=== PATIENT | female | born 1965 | race Caucasian/White ===

== ENCOUNTER 2024-12-19 09:22 | Emergency (ER) | payer SELFPAY ==
[2024-12-19 09:27] VITALS: BP 140/88
[2024-12-19 10:05] VITALS: BP 127/63; BMI 25.8
--- NOTE | 2024-12-19 10:05 | ED.GENMED ---
History of Present Illness
General
Chief Complaint: Blood Sugar Problem
Source: patient
Exam Limitations: none
Time Seen by Provider: 12/19/24 09:55
Nursing documentation reviewed up to this point in time: agreed with
History of Present Illness
History of Present Illness:
59-year-old female with history diabetes who presents to the emergency department for evaluation of elevated blood sugar. Patient states that she checked her blood sugar this morning and it was reading in the 300s. She states she did have some mild
blurry vision at home which is somewhat improved by arrival to emergency department. Otherwise she is asymptomatic.
She specifically denies any headache, double vision, abdominal pain, nausea or vomiting. She is urinating without difficulty without any dysuria. She denies any chest pain or shortness of breath.
Patient states she has known type 2 diabetes, although has been unmedicated for a few years. She in the past was on both metformin and Ozempic. She has not checked her blood sugar in a few years and has not had any primary care follow up due to loss
of insurance.
Past History
Past History
ED Past Medical History: Other (bladder ca)
ED Past Surgical History: Cholecystectomy and Other (splenectomy)
Social History
Tobacco: Smoker
Alcohol: None
Drug: None
Personal:
Living: with family
Review of Systems
Review of Systems
Allergies reviewed?: Yes
All Other Systems: ROS reviewed and negative except as documented in HPI and ROS
Phy Exam
Physical Exam
Physical Exam:
Vitals: Mildly tachycardic on arrival, otherwise vitals stable.
General: Patient resting comfortably in no distress.
Skin: Warm and dry, no rashes or lesions
Head: Normocephalic, atraumatic
Eyes: Sclera nonicteric. EOMs intact. Visual hilliard intact. Pupils equal round and reactive to light bilaterally. No nystagmus.
Throat: Protecting airway
Neck: Normal ROM, no cervical spine tenderness, no meningismus
Cardiac: Regular rate and rhythm, no murmurs.
Pulm: Normal respiratory effort. Lungs clear
Abdomen: Abdomen soft and nontender.
Extremities: No evidence of cyanosis or edema. 2+ palpable DP pulses bilaterally.
Neuro: AAOx3. Strength 5/5 in bilateral upper and lower extremities. Sensation intact. No focal deficits
Psychiatric: Normal affect.
Course
Orders/Labs/Results
Orders:
Orders
12/19/24 10:02
0.9% Sodium Chloride 1000 ml [Nss] 1,000 ml IV BOLUS
12/19/24 10:08
Complete Blood Count/With Diff Urgent
Comprehensive Metabolic Panel Urgent
Glycohemoglobin (HgbA1c) Urgent
12/19/24 11:38
Bedside Glucose- Treatment ONCE
12/19/24 12:38
Add On- LAB Urgent
Tests Added?: hgb A1C
12/19/24 12:50
Metformin Extended Release [Glucophage Xr Extended Release] 500 mg PO NOW STA
Abnormal Lab Results
12/19/24 12/19/24
10:08 12:32
WBC 13.0 H 10^3/uL
(4.8-10.8)
RBC 5.70 H 10^6/uL
(4.20-5.40)
Hgb 16.8 H g/dL
(12.0-16.0)
Hct 48.0 H %
(37.0-47.0)
MPV 10.6 H fL
(7.4-10.4)
Absolute Neuts (auto) 7.1 H 10^3/uL
(1.4-6.5)
Absolute Lymphs (auto) 4.9 H 10^3/uL
(1.2-3.4)
Absolute Monos (auto) 0.7 H 10^3/uL
(0.1-0.6)
Creatinine 0.4 L mg/dL
(0.6-1.0)
Glucose 313 H mg/dl
(70-99)
Hemoglobin A1c 14.6 H %
(4.0-5.6)
Calcium 10.4 H mg/dl
(8.4-10.2)
Alkaline Phosphatase 134 H U/L
(38-126)
POC Glucose 227 H mg/dl
(70-99)
12/19/24 10:08
12/19/24 10:08
Vital Signs
Initial and Last Documented VS:
Initial Vital Signs
Temp Pulse Resp BP Pulse Ox
98.9 F 108 16 140/88 98
12/19/24 09:27 12/19/24 09:27 12/19/24 09:27 12/19/24 09:27 12/19/24 09:27
Last Documented Vital Signs
Temp Pulse Resp BP Pulse Ox
98.9 F 89 14 127/63 97
12/19/24 09:27 12/19/24 10:15 12/19/24 10:15 12/19/24 10:05 12/19/24 10:15
MDM/Problems Addressed
Differential Diagnosis Includes:
Not limited to: hyperglycemia, DKA, HHS, acute dehydration, medication noncompliance, etc
MDM/Problems Addressed:
59-year-old female with history of type two diabetes presenting with hyperglycemia. Patient has been unmedicated for the past two years and has not had outpatient follow up secondary to loss of insurance. Patient with no history of insulin use.
Patient denies any infectious symptoms. Patient mild tachycardic on arrival although improved by my assessment. Otherwise vital signs are stable. On exam � patient in no apparent distress. She has dry mucus membranes. No focal neurologic deficits
and visual hilliard intact. Abdomen soft and nontender.
ED plan: Basic labs, IVF and reassess.
Update: labs reviewed. Leukocytosis of 13 as well as hemoglobin of 16.8 suggesting likely hemoconcentration secondary to dehydration. Chemistry reveals hyperglycemia with glucose of 313 however, no anion gap.
Update: Patient has received 1 liter IV fluids and remains asymptomatic. Her glucose has decreased to 227. Suspect hyperglycemia secondary to poorly controlled type two diabetes as well as dehydration. No evidence of DKA or infectious process.
Patient will require outpatient follow up. Discussed with pharmacist who consulted with patient and will plan to start low dose metformin pending outpatient follow up. Patient given information for free clinic. Very strict return precautions
discussed. Patient comfortable with plan.
Chronic conditions affecting care:
Type 2 DM
Acute Exacerbation and/or Progression of Chronic Illness:
Acute hyperglycemia
*Pulse Oximetry
SaO2: 98
Oxygen Mode of Delivery: Room air
Patient hypoxic: no
*EKG
Interpreted by ED Provider?: NA
*Department Of Soci[employer] Chair Interpretation
Rate: Department Of Soci[employer] Chair- N/A
*Critical Care Note
Total Time (30-74mins, 75-104mins- exclusive of procedures): Not Applicable
ED Attending Note
-
Portions of this chart may have been created with voice recognition software.� Occasional wrong word or��sound alike� substitutions may have occurred due to the inherent limitations of voice recognition software.
Discharge Plan
Departure
Patient Disposition: Home (Routine Discharge)
Date of Disposition: 12/19/24
Time of Disposition: 12:26
Patient with high blood pressure during this ER visit?: Yes
Condition: Good
Discharge Problem:
Hyperglycemia, Type 2 diabetes mellitus
Instructions: Type 2 Diabetes (DC), BLOOD PRESSURE
Prescriptions:
New
metformin [Glucophage XR] 500 mg tablet extended release 24 hr
500 mg PO DAILY Qty: 30 0RF
Rx Instructions:
Take 500mg PO QD x 1 week, then increase to 1000 mg QD if tolerating well
Referrals:
[facility] - Next open appointment
NONE,* [Family Provider, Internal Medicine]
Activity Restrictions/Additional Instructions:
RETURN TO THE EMERGENCY DEPARTMENT WITH ANY FEVER, CHILLS, ABDOMINAL PAIN, INTRACTABLE NAUSEA/VOMITING, VISUAL CHANGES, HEADACHE, WORSENING IN CURRENT SYMPTOMS, OR ANY OTHER CONCERNS
- As discussed�your glucose was elevated in the emergency department. This is likely secondary to your history of type 2 diabetes as well as dehydration. You were given a liter of IV fluids
- A prescription for metformin has been sent to your pharmacy. Please take this once a day for the next week. If tolerating well�you can take two tabs once per day
- It is important stay well-hydrated. Follow a balanced diet.
- Please follow-up with the [facility] for further evaluation and continued management of your diabetes. You may require additional medication and lab work.
Monitor your symptoms closely and return to the emergency department with any acute worsening/new symptoms or any other concerns
Interventions
Interventions:
*Risk Screen - Suicide Last Done: 12/19/24 09:27
*General Assessment Last Done: 12/19/24 09:27
*Neglect/Abuse Screening Last Done: 12/19/24 09:27
*ED- Fall Risk Assessment Last Done: 12/19/24 09:27
*ED COVID-19 Vaccine History Last Done: 12/19/24 09:27
*Nursing Disposition Last Done: 12/19/24 14:04
ED- Neurological Assessment Last Done: 12/19/24 10:06
Discharge Date and Time
Discharge Date/Time: 12/19/24 14:04
Print Language: [id number]
[2024-12-19] MEDS: NSS 1000 IV (10:09)
[2024-12-19 10:13] LABS: Hematocrit 48.0 % (37.0-47.0); Hemoglobin 16.8 g/dL (12.0-16.0); Mean Corp Hgb Conc. 35.0 g/dL (33.0-37.0); Mean Corpuscular Volume 84.2 fL (81.0-99.0); Nucleated Red Blood Cells % 0 %; Platelet Count 375 10^3/uL (130-400); Red Cell Dist. Width 12.9 % (11.5-14.5)
[2024-12-19 10:38] LABS: ALT (SGPT) 17 U/L (0-35); AST (SGOT) 17 U/L (14-36); Albumin 4.6 g/dl (3.5-5.0); Alkaline Phosphatase 134 U/L (38-126); Blood Urea Nitrogen 14 mg/dl (7-17); Calcium 10.4 mg/dl (8.4-10.2); Carbon Dioxide 23 mmol/L (22-30); Chloride 103 mmol/L (98-107); Estimated Creatinine Clearance 73 ml/min; Glucose 313 mg/dl (70-99); Potassium 4.3 mmol/L (3.5-5.1); Sodium 135 mmol/L (135-145); Total Protein 7.7 g/dl (6.3-8.2); eGFR > 60.00
[2024-12-19 12:35] LABS: Glucose - Point of Care 227 mg/dl (70-99)
[2024-12-19] MEDS: GLUCOPHAGE XR EXTENDED RELEASE 500 MG PO (13:30)
[2024-12-19 14:28] LABS: Glycohemoglobin (HgbA1c) 14.6 % (4.0-5.6)
== END 2024-12-19 14:04 | disposition home or self-care (01) ==
LOC: EMR 09:22
PROVIDERS: Physician Assistant; EMERGENCY PHYSICIAN Emergency Medicine
DX: E11.65 Type 2 diabetes mellitus with hyperglycemia (principal); D72.829 Elevated white blood cell count, unspecified; F17.200 Nicotine dependence, unspecified, uncomplicated; Z90.49 Acquired absence of other specified parts of digestive tract
CPT/HCPCS: 99283; 80053; 82962; 83036; 85025